=== PATIENT | female | born 1935 | race Caucasian/White ===

== ENCOUNTER 2020-11-11 16:36 | Inpatient (IN) ==
[2020-11-11] MEDS ORDERED: Ondansetron ODT 4 MG TAB.RAPDIS SL PRN (17:45)
[2020-11-12] MEDS: Gabapentin 100 MG CAPSULE PO SCH ×2 (03:59→20:20)
[2020-11-12] MEDS: rOPINIRole 1 MG TABLET PO SCH ×5 (04:00→20:20)
[2020-11-12] MEDS: Famotidine 20 MG TABLET PO SCH ×2 (04:00→20:20)
[2020-11-12 08:10] LABS: Basophils % 0.4 %; Eosinophils # 0.4 K/mcL (0.0-0.6); Eosinophils % 4.7 %; Hemoglobin 10.5 g/dL (11.5-15.4); Immature Granulocytes % 0.6 % (0-4); Lymphocytes # 1.2 K/mcL (0.6-4.6); Lymphocytes % 12.7 %; Mean Corpuscular HGB Conc 32.8 g/dL (31.6-35.5); Mean Corpuscular Hemoglobin 27.4 pg (28.0-33.3); Mean Corpuscular Volume 83.6 fL (83.0-100.0); Mean Platelet Volume 9.9 fL (9.4-12.4); Monocytes # 0.6 K/mcL (0.0-1.3); Monocytes % 6.4 %; Neutrophils # 7.1 K/mcL (1.6-8.9); Platelet Count 355 K/mcL (140-400); Red Blood Count 3.83 M/mcL (3.82-4.97); Red Cell Distribution Width 13.8 % (11.5-14.5); Segmented Neutrophils % 75.2 %; White Blood Count 9.5 K/mcL (4.3-11.1)
[2020-11-12 08:37] LABS: BUN/Creatinine Ratio 14 (6-26); Blood Urea Nitrogen 15 mg/dL (8-23); Calcium 9.2 mg/dL (8.6-10.3); Carbon Dioxide 25 mEq/L (23-29); Chloride 107 mEq/L (98-107); Glucose 105 mg/dL (70-105); Osmolality,Calculated 291 (280-300); Potassium 3.7 mEq/L (3.5-5.1); Sodium 140 mEq/L (136-145); eGFR For African Americans > 60 (> 60); eGFR For Non-African Americans 50 (> 60)
[2020-11-12] MEDS: Cholecalciferol (D-3) 1,000 UNIT (25MCG) TABLET PO SCH (09:22)
[2020-11-12] MEDS: amLODIPine 5 MG TABLET PO SCH (09:22)
[2020-11-12] MEDS: Multivit/Ca/Min/Fe/FA 1 TAB TABLET PO SCH (09:23)
[2020-11-12] MEDS: Acetaminophen 325 MG TABLET PO PRN ×2 (09:23→20:20)
[2020-11-12] MEDS: Furosemide 20 MG TABLET PO SCH (09:23)
[2020-11-12] MEDS: DAPTOmycin 350 MG in 0.9 % Sodium Chloride 100 ML IVPB SCH (16:50)
[2020-11-12] MEDS: tiZANidine 4 MG TABLET PO SCH (20:20)
[2020-11-13] MEDS: rOPINIRole 1 MG TABLET PO SCH ×4 (09:27→21:46)
[2020-11-13] MEDS: Acetaminophen 325 MG TABLET PO PRN ×2 (09:27→17:31)
[2020-11-13] MEDS: Cholecalciferol (D-3) 1,000 UNIT (25MCG) TABLET PO SCH (09:27)
[2020-11-13] MEDS: Multivit/Ca/Min/Fe/FA 1 TAB TABLET PO SCH (09:27)
[2020-11-13] MEDS: Furosemide 20 MG TABLET PO SCH (09:28)
[2020-11-13] MEDS: amLODIPine 5 MG TABLET PO SCH (09:28)
[2020-11-13] MEDS: DAPTOmycin 350 MG in 0.9 % Sodium Chloride 100 ML IVPB SCH ×2 (17:30→17:31)
[2020-11-13] MEDS: tiZANidine 4 MG TABLET PO SCH (21:45)
[2020-11-13] MEDS: Famotidine 20 MG TABLET PO SCH (21:46)
[2020-11-13] MEDS: Gabapentin 100 MG CAPSULE PO SCH (21:46)
[2020-11-14] MEDS: Acetaminophen 325 MG TABLET PO PRN ×2 (07:50→16:40)
[2020-11-14] MEDS: amLODIPine 5 MG TABLET PO SCH (07:50)
[2020-11-14] MEDS: Cholecalciferol (D-3) 1,000 UNIT (25MCG) TABLET PO SCH (07:50)
[2020-11-14] MEDS: rOPINIRole 1 MG TABLET PO SCH ×4 (07:50→20:46)
[2020-11-14] MEDS: Multivit/Ca/Min/Fe/FA 1 TAB TABLET PO SCH (07:50)
[2020-11-14] MEDS: Furosemide 20 MG TABLET PO SCH (07:50)
[2020-11-14] MEDS: DAPTOmycin 350 MG in 0.9 % Sodium Chloride 100 ML IVPB SCH (16:41)
[2020-11-14] MEDS: Gabapentin 100 MG CAPSULE PO SCH (20:45)
[2020-11-14] MEDS: Famotidine 20 MG TABLET PO SCH (20:46)
[2020-11-14] MEDS: tiZANidine 4 MG TABLET PO SCH (20:48)
[2020-11-15] MEDS: Acetaminophen 325 MG TABLET PO PRN ×3 (04:29→21:53)
[2020-11-15] MEDS ORDERED: *HR* HYDROcodone/Acet 5/325 mg TABLET PO ONE (05:31)
[2020-11-15] MEDS: Furosemide 20 MG TABLET PO SCH (07:33)
[2020-11-15] MEDS: rOPINIRole 1 MG TABLET PO SCH ×4 (07:33→21:55)
[2020-11-15] MEDS: Cholecalciferol (D-3) 1,000 UNIT (25MCG) TABLET PO SCH (07:33)
[2020-11-15] MEDS: amLODIPine 5 MG TABLET PO SCH (07:33)
[2020-11-15] MEDS: Multivit/Ca/Min/Fe/FA 1 TAB TABLET PO SCH (07:33)
[2020-11-15] MEDS: DAPTOmycin 350 MG in 0.9 % Sodium Chloride 100 ML IVPB SCH (15:36)
[2020-11-15] MEDS: Famotidine 20 MG TABLET PO SCH (21:52)
[2020-11-15] MEDS: tiZANidine 4 MG TABLET PO SCH (21:56)
[2020-11-15] MEDS: Gabapentin 100 MG CAPSULE PO SCH (21:56)
[2020-11-16] MEDS: rOPINIRole 1 MG TABLET PO SCH ×4 (10:43→21:06)
[2020-11-16] MEDS: Cholecalciferol (D-3) 1,000 UNIT (25MCG) TABLET PO SCH (10:44)
[2020-11-16] MEDS: Furosemide 20 MG TABLET PO SCH (10:45)
[2020-11-16] MEDS: Multivit/Ca/Min/Fe/FA 1 TAB TABLET PO SCH (10:45)
[2020-11-16] MEDS: amLODIPine 5 MG TABLET PO SCH (10:45)
[2020-11-16] MEDS: DAPTOmycin 350 MG in 0.9 % Sodium Chloride 100 ML IVPB SCH (17:06)
[2020-11-16] MEDS: Gabapentin 100 MG CAPSULE PO SCH (21:06)
[2020-11-16] MEDS: Famotidine 20 MG TABLET PO SCH (21:06)
[2020-11-16] MEDS: tiZANidine 4 MG TABLET PO SCH (21:07)
[2020-11-17] MEDS: Furosemide 20 MG TABLET PO SCH (08:33)
[2020-11-17] MEDS: rOPINIRole 1 MG TABLET PO SCH ×4 (08:33→20:49)
[2020-11-17] MEDS: Acetaminophen 325 MG TABLET PO PRN (08:33)
[2020-11-17] MEDS: amLODIPine 5 MG TABLET PO SCH (08:33)
[2020-11-17] MEDS: Multivit/Ca/Min/Fe/FA 1 TAB TABLET PO SCH (08:33)
[2020-11-17] MEDS: Cholecalciferol (D-3) 1,000 UNIT (25MCG) TABLET PO SCH (08:34)
[2020-11-17] MEDS: DAPTOmycin 350 MG in 0.9 % Sodium Chloride 100 ML IVPB SCH (16:04)
[2020-11-17] MEDS: Famotidine 20 MG TABLET PO SCH (20:46)
[2020-11-17] MEDS: Gabapentin 100 MG CAPSULE PO SCH (20:47)
[2020-11-17] MEDS: tiZANidine 4 MG TABLET PO SCH (20:48)
[2020-11-18 08:00] LABS: Basophils # 0.1 K/mcL (0.0-0.2); Basophils % 1.1 %; Eosinophils # 0.6 K/mcL (0.0-0.6); Eosinophils % 6.8 %; Hematocrit 35.6 % (35.3-44.9); Hemoglobin 11.3 g/dL (11.5-15.4); Immature Granulocytes % 0.2 % (0-4); Lymphocytes # 1.8 K/mcL (0.6-4.6); Lymphocytes % 22.3 %; Mean Corpuscular HGB Conc 31.7 g/dL (31.6-35.5); Mean Corpuscular Hemoglobin 27.4 pg (28.0-33.3); Mean Corpuscular Volume 86.4 fL (83.0-100.0); Mean Platelet Volume 9.9 fL (9.4-12.4); Monocytes # 0.8 K/mcL (0.0-1.3); Monocytes % 9.7 %; Neutrophils # 4.8 K/mcL (1.6-8.9); Platelet Count 465 K/mcL (140-400); Red Blood Count 4.12 M/mcL (3.82-4.97); Red Cell Distribution Width 13.7 % (11.5-14.5); Segmented Neutrophils % 59.9 %; White Blood Count 8.1 K/mcL (4.3-11.1)
[2020-11-18 08:30] LABS: Calcium 9.6 mg/dL (8.6-10.3); Potassium 3.7 mEq/L (3.5-5.1)
[2020-11-18] MEDS: Furosemide 20 MG TABLET PO SCH (09:44)
[2020-11-18] MEDS: amLODIPine 5 MG TABLET PO SCH (09:44)
[2020-11-18] MEDS: Cholecalciferol (D-3) 1,000 UNIT (25MCG) TABLET PO SCH (09:44)
[2020-11-18] MEDS: rOPINIRole 1 MG TABLET PO SCH ×4 (09:44→19:44)
[2020-11-18] MEDS: Multivit/Ca/Min/Fe/FA 1 TAB TABLET PO SCH (09:45)
[2020-11-18] MEDS: DAPTOmycin 350 MG in 0.9 % Sodium Chloride 100 ML IVPB SCH (15:35)
[2020-11-18] MEDS: tiZANidine 4 MG TABLET PO SCH (19:44)
[2020-11-18] MEDS: Gabapentin 100 MG CAPSULE PO SCH (19:44)
[2020-11-19] MEDS: Cholecalciferol (D-3) 1,000 UNIT (25MCG) TABLET PO SCH (09:51)
[2020-11-19] MEDS: Multivit/Ca/Min/Fe/FA 1 TAB TABLET PO SCH (09:51)
[2020-11-19] MEDS: rOPINIRole 1 MG TABLET PO SCH ×4 (09:51→20:18)
[2020-11-19] MEDS: Furosemide 20 MG TABLET PO SCH (09:51)
[2020-11-19] MEDS: amLODIPine 5 MG TABLET PO SCH (09:51)
[2020-11-19] MEDS: 0.9 % Sodium Chloride 1,000 ML IVC SCH (18:05)
[2020-11-19] MEDS: Gabapentin 100 MG CAPSULE PO SCH (20:18)
[2020-11-19] MEDS: tiZANidine 4 MG TABLET PO SCH (20:18)
[2020-11-19] MEDS: Famotidine 20 MG TABLET PO SCH (20:18)
[2020-11-20] MEDS: 0.9 % Sodium Chloride 1,000 ML IVC SCH (06:33)
[2020-11-20 07:35] LABS: Potassium 4.3 mEq/L (3.5-5.1)
[2020-11-20] MEDS: rOPINIRole 1 MG TABLET PO SCH ×4 (08:52→21:52)
[2020-11-20] MEDS: Cholecalciferol (D-3) 1,000 UNIT (25MCG) TABLET PO SCH (08:52)
[2020-11-20] MEDS: Multivit/Ca/Min/Fe/FA 1 TAB TABLET PO SCH (08:52)
[2020-11-20] MEDS: Furosemide 20 MG TABLET PO SCH (10:18)
[2020-11-20] MEDS: tiZANidine 4 MG TABLET PO SCH (21:52)
[2020-11-20] MEDS: Gabapentin 100 MG CAPSULE PO SCH (21:52)
[2020-11-21] MEDS: Cholecalciferol (D-3) 1,000 UNIT (25MCG) TABLET PO SCH (08:09)
[2020-11-21] MEDS: rOPINIRole 1 MG TABLET PO SCH ×3 (08:09→23:30)
[2020-11-21] MEDS: Multivit/Ca/Min/Fe/FA 1 TAB TABLET PO SCH (08:09)
[2020-11-21 09:49] LABS: Calcium 8.8 mg/dL (8.6-10.3); Potassium 4.2 mEq/L (3.5-5.1)
[2020-11-21] MEDS: tiZANidine 4 MG TABLET PO SCH (20:18)
[2020-11-21] MEDS: Gabapentin 100 MG CAPSULE PO SCH (20:19)
[2020-11-21] MEDS: Famotidine 20 MG TABLET PO SCH (20:20)
[2020-11-22] MEDS: rOPINIRole 1 MG TABLET PO SCH ×4 (05:45→23:10)
[2020-11-22] MEDS: Cholecalciferol (D-3) 1,000 UNIT (25MCG) TABLET PO SCH (08:27)
[2020-11-22] MEDS: Multivit/Ca/Min/Fe/FA 1 TAB TABLET PO SCH (08:27)
[2020-11-22] MEDS: Furosemide 20 MG TABLET PO SCH (11:57)
[2020-11-22] MEDS: Gabapentin 100 MG CAPSULE PO SCH (21:24)
[2020-11-22] MEDS: tiZANidine 4 MG TABLET PO SCH (21:24)
[2020-11-23] MEDS: rOPINIRole 1 MG TABLET PO SCH ×5 (03:00→22:27)
[2020-11-23] MEDS: Multivit/Ca/Min/Fe/FA 1 TAB TABLET PO SCH (08:09)
[2020-11-23] MEDS: Cholecalciferol (D-3) 1,000 UNIT (25MCG) TABLET PO SCH (08:10)
[2020-11-23] MEDS: Furosemide 20 MG TABLET PO SCH (08:11)
[2020-11-23] MEDS: Gabapentin 100 MG CAPSULE PO SCH (20:04)
[2020-11-23] MEDS: Famotidine 20 MG TABLET PO SCH (20:05)
[2020-11-23] MEDS: tiZANidine 4 MG TABLET PO SCH (20:05)
[2020-11-24] MEDS: rOPINIRole 1 MG TABLET PO SCH ×4 (04:59→22:49)
[2020-11-24] MEDS: Multivit/Ca/Min/Fe/FA 1 TAB TABLET PO SCH ×2 (09:03→09:04)
[2020-11-24] MEDS: Furosemide 20 MG TABLET PO SCH (09:04)
[2020-11-24] MEDS: Cholecalciferol (D-3) 1,000 UNIT (25MCG) TABLET PO SCH (09:04)
[2020-11-24] MEDS: tiZANidine 4 MG TABLET PO SCH (20:39)
[2020-11-24] MEDS: Gabapentin 100 MG CAPSULE PO SCH (20:40)
[2020-11-25] MEDS: rOPINIRole 1 MG TABLET PO SCH ×4 (04:56→22:24)
[2020-11-25] MEDS: Furosemide 20 MG TABLET PO SCH (08:50)
[2020-11-25] MEDS: Multivit/Ca/Min/Fe/FA 1 TAB TABLET PO SCH (08:50)
[2020-11-25] MEDS: Cholecalciferol (D-3) 1,000 UNIT (25MCG) TABLET PO SCH (08:50)
[2020-11-25] MEDS: Gabapentin 100 MG CAPSULE PO SCH (22:24)
[2020-11-25] MEDS: tiZANidine 4 MG TABLET PO SCH (22:24)
[2020-11-25] MEDS: Famotidine 20 MG TABLET PO SCH (22:24)
[2020-11-26] MEDS: rOPINIRole 1 MG TABLET PO SCH ×4 (06:10→22:07)
[2020-11-26] MEDS: Cholecalciferol (D-3) 1,000 UNIT (25MCG) TABLET PO SCH (11:45)
[2020-11-26] MEDS: Multivit/Ca/Min/Fe/FA 1 TAB TABLET PO SCH (11:46)
[2020-11-26] MEDS: Furosemide 20 MG TABLET PO SCH (11:47)
[2020-11-26] MEDS: Gabapentin 100 MG CAPSULE PO SCH (22:07)
[2020-11-26] MEDS: tiZANidine 4 MG TABLET PO SCH (22:07)
[2020-11-27] MEDS: rOPINIRole 1 MG TABLET PO SCH ×4 (05:41→21:21)
[2020-11-27] MEDS: Furosemide 20 MG TABLET PO SCH (08:31)
[2020-11-27] MEDS: Multivit/Ca/Min/Fe/FA 1 TAB TABLET PO SCH (08:31)
[2020-11-27] MEDS: Cholecalciferol (D-3) 1,000 UNIT (25MCG) TABLET PO SCH (08:31)
[2020-11-27] MEDS: tiZANidine 4 MG TABLET PO SCH (21:18)
[2020-11-27] MEDS: Gabapentin 100 MG CAPSULE PO SCH (21:19)
[2020-11-27] MEDS: Famotidine 20 MG TABLET PO SCH (21:20)
[2020-11-28] MEDS: rOPINIRole 1 MG TABLET PO SCH ×4 (04:13→21:46)
[2020-11-28] MEDS: Cholecalciferol (D-3) 1,000 UNIT (25MCG) TABLET PO SCH (09:05)
[2020-11-28] MEDS: Multivit/Ca/Min/Fe/FA 1 TAB TABLET PO SCH (09:05)
[2020-11-28] MEDS: Furosemide 20 MG TABLET PO SCH (09:05)
[2020-11-28] MEDS: Gabapentin 100 MG CAPSULE PO SCH (21:46)
[2020-11-28] MEDS: tiZANidine 4 MG TABLET PO SCH (21:46)
[2020-11-29] MEDS: rOPINIRole 1 MG TABLET PO SCH ×4 (05:03→21:48)
[2020-11-29] MEDS: Cholecalciferol (D-3) 1,000 UNIT (25MCG) TABLET PO SCH (09:28)
[2020-11-29] MEDS: Multivit/Ca/Min/Fe/FA 1 TAB TABLET PO SCH (09:28)
[2020-11-29] MEDS: Furosemide 20 MG TABLET PO SCH (09:28)
[2020-11-29] MEDS: tiZANidine 4 MG TABLET PO SCH (20:35)
[2020-11-29] MEDS: Famotidine 20 MG TABLET PO SCH (20:35)
[2020-11-29] MEDS: Gabapentin 100 MG CAPSULE PO SCH (20:35)
[2020-11-30] MEDS: rOPINIRole 1 MG TABLET PO SCH ×4 (05:05→21:42)
[2020-11-30] MEDS: Cholecalciferol (D-3) 1,000 UNIT (25MCG) TABLET PO SCH (08:58)
[2020-11-30] MEDS: Multivit/Ca/Min/Fe/FA 1 TAB TABLET PO SCH (08:59)
[2020-11-30] MEDS: Furosemide 20 MG TABLET PO SCH (08:59)
[2020-11-30] MEDS: Gabapentin 100 MG CAPSULE PO SCH (21:41)
[2020-11-30] MEDS: tiZANidine 4 MG TABLET PO SCH (21:42)
[2020-12-01] MEDS: rOPINIRole 1 MG TABLET PO SCH ×4 (04:43→21:36)
[2020-12-01] MEDS: Multivit/Ca/Min/Fe/FA 1 TAB TABLET PO SCH (09:40)
[2020-12-01] MEDS: Cholecalciferol (D-3) 1,000 UNIT (25MCG) TABLET PO SCH (09:40)
[2020-12-01] MEDS: Furosemide 20 MG TABLET PO SCH (09:40)
[2020-12-01] MEDS: Gabapentin 100 MG CAPSULE PO SCH (21:35)
[2020-12-01] MEDS: Famotidine 20 MG TABLET PO SCH (21:36)
[2020-12-01] MEDS: tiZANidine 4 MG TABLET PO SCH (21:36)
[2020-12-02] MEDS: rOPINIRole 1 MG TABLET PO SCH ×4 (04:57→21:39)
[2020-12-02] MEDS: Multivit/Ca/Min/Fe/FA 1 TAB TABLET PO SCH (08:57)
[2020-12-02] MEDS: Cholecalciferol (D-3) 1,000 UNIT (25MCG) TABLET PO SCH (08:57)
[2020-12-02 09:10] LABS: Basophils % 0.5 %; Eosinophils # 0.4 K/mcL (0.0-0.6); Hematocrit 34.3 % (35.3-44.9); Hemoglobin 10.9 g/dL (11.5-15.4); Immature Granulocytes % 0.1 % (0-4); Lymphocytes # 1.2 K/mcL (0.6-4.6); Mean Corpuscular HGB Conc 31.8 g/dL (31.6-35.5); Mean Corpuscular Hemoglobin 27.5 pg (28.0-33.3); Mean Corpuscular Volume 86.4 fL (83.0-100.0); Mean Platelet Volume 9.3 fL (9.4-12.4); Monocytes # 0.5 K/mcL (0.0-1.3); Monocytes % 6.5 %; Neutrophils # 5.2 K/mcL (1.6-8.9); Platelet Count 357 K/mcL (140-400); Red Blood Count 3.97 M/mcL (3.82-4.97); Red Cell Distribution Width 14.2 % (11.5-14.5); Segmented Neutrophils % 70.9 %; White Blood Count 7.4 K/mcL (4.3-11.1)
[2020-12-02 09:21] LABS: Calcium 9.2 mg/dL (8.6-10.3); Potassium 3.7 mEq/L (3.5-5.1)
[2020-12-02] MEDS: 0.9 % Sodium Chloride 1,000 ML IVC SCH (16:52)
[2020-12-02] MEDS: Gabapentin 100 MG CAPSULE PO SCH (21:39)
[2020-12-02] MEDS: tiZANidine 4 MG TABLET PO SCH (21:39)
[2020-12-03] MEDS: rOPINIRole 1 MG TABLET PO SCH ×4 (04:44→21:21)
[2020-12-03] MEDS: 0.9 % Sodium Chloride 1,000 ML IVC SCH ×2 (04:45→19:38)
[2020-12-03 07:32] LABS: Calcium 8.3 mg/dL (8.6-10.3); Potassium 3.7 mEq/L (3.5-5.1)
[2020-12-03] MEDS: Cholecalciferol (D-3) 1,000 UNIT (25MCG) TABLET PO SCH (09:31)
[2020-12-03] MEDS: Multivit/Ca/Min/Fe/FA 1 TAB TABLET PO SCH (09:31)
[2020-12-03] MEDS ORDERED: Perflutren Lipid Microsphere 1.3 ML in 0.9 % Sodium Chloride 8.7 ML IVP PRN (09:43)
[2020-12-03] MEDS: tiZANidine 4 MG TABLET PO SCH (21:12)
[2020-12-03] MEDS: Gabapentin 100 MG CAPSULE PO SCH (21:12)
[2020-12-03] MEDS: Famotidine 20 MG TABLET PO SCH (21:13)
[2020-12-04] MEDS: rOPINIRole 1 MG TABLET PO SCH ×4 (04:10→23:18)
[2020-12-04] MEDS: Cholecalciferol (D-3) 1,000 UNIT (25MCG) TABLET PO SCH (07:39)
[2020-12-04] MEDS: Multivit/Ca/Min/Fe/FA 1 TAB TABLET PO SCH (07:39)
[2020-12-04 08:48] LABS: Basophils # 0.1 K/mcL (0.0-0.2); Basophils % 0.7 %; Eosinophils # 0.6 K/mcL (0.0-0.6); Eosinophils % 9.5 %; Hematocrit 34.7 % (35.3-44.9); Hemoglobin 10.7 g/dL (11.5-15.4); Immature Granulocytes % 0.3 % (0-4); Lymphocytes # 1.5 K/mcL (0.6-4.6); Lymphocytes % 22.6 %; Mean Corpuscular HGB Conc 30.8 g/dL (31.6-35.5); Mean Corpuscular Volume 87.4 fL (83.0-100.0); Mean Platelet Volume 9.7 fL (9.4-12.4); Monocytes # 0.6 K/mcL (0.0-1.3); Monocytes % 8.2 %; Platelet Count 304 K/mcL (140-400); Red Blood Count 3.97 M/mcL (3.82-4.97); Red Cell Distribution Width 14.2 % (11.5-14.5); Segmented Neutrophils % 58.7 %; White Blood Count 6.7 K/mcL (4.3-11.1)
[2020-12-04 09:12] LABS: BUN/Creatinine Ratio 16 (6-26); Blood Urea Nitrogen 16 mg/dL (8-23); Calcium 8.6 mg/dL (8.6-10.3); Carbon Dioxide 23 mEq/L (23-29); Chloride 109 mEq/L (98-107); Glucose 129 mg/dL (70-105); Osmolality,Calculated 293 (280-300); Potassium 3.9 mEq/L (3.5-5.1); Sodium 140 mEq/L (136-145); eGFR For African Americans > 60 (> 60); eGFR For Non-African Americans 52 (> 60)
[2020-12-04] MEDS: 0.9 % Sodium Chloride 1,000 ML IVC SCH (10:23)
[2020-12-04] MEDS: Gabapentin 100 MG CAPSULE PO SCH (20:59)
[2020-12-04] MEDS: tiZANidine 4 MG TABLET PO SCH (20:59)
[2020-12-05] MEDS: rOPINIRole 1 MG TABLET PO SCH ×4 (05:20→21:10)
[2020-12-05] MEDS: Multivit/Ca/Min/Fe/FA 1 TAB TABLET PO SCH (08:12)
[2020-12-05] MEDS: Cholecalciferol (D-3) 1,000 UNIT (25MCG) TABLET PO SCH (08:13)
[2020-12-05] MEDS: Furosemide 20 MG TABLET PO SCH (08:13)
[2020-12-05] MEDS: Famotidine 20 MG TABLET PO SCH (08:14)
[2020-12-05] MEDS: tiZANidine 4 MG TABLET PO SCH (21:10)
[2020-12-05] MEDS: Gabapentin 100 MG CAPSULE PO SCH (21:10)
[2020-12-06] MEDS: rOPINIRole 1 MG TABLET PO SCH ×4 (05:29→22:49)
[2020-12-06] MEDS: Cholecalciferol (D-3) 1,000 UNIT (25MCG) TABLET PO SCH (08:55)
[2020-12-06] MEDS: Multivit/Ca/Min/Fe/FA 1 TAB TABLET PO SCH (08:55)
[2020-12-06] MEDS: Furosemide 20 MG TABLET PO SCH (08:56)
[2020-12-06] MEDS: Famotidine 20 MG TABLET PO SCH (08:56)
[2020-12-06] MEDS: Gabapentin 100 MG CAPSULE PO SCH (20:44)
[2020-12-06] MEDS: tiZANidine 4 MG TABLET PO SCH (20:44)
[2020-12-07] MEDS: rOPINIRole 1 MG TABLET PO SCH ×4 (05:36→23:10)
[2020-12-07] MEDS ORDERED: *HR* Propofol 200 MG/20 ML VIAL IVP ONE (07:06)
[2020-12-07] MEDS ORDERED: Lidocaine -MPF 2% 5 ML VIAL ONE (07:07)
[2020-12-07] MEDS ORDERED: Famotidine 20 MG/2 ML VIAL IVP ONE (07:37)
[2020-12-07] MEDS ORDERED: Acetaminophen IV 1,000 MG/100 ML BAG IVPB ONE (07:38)
[2020-12-07] MEDS: Multivit/Ca/Min/Fe/FA 1 TAB TABLET PO SCH (12:59)
[2020-12-07] MEDS: Famotidine 20 MG TABLET PO SCH (12:59)
[2020-12-07] MEDS: Cholecalciferol (D-3) 1,000 UNIT (25MCG) TABLET PO SCH (13:00)
[2020-12-07] MEDS: Furosemide 20 MG TABLET PO SCH (13:00)
[2020-12-07] MEDS ORDERED: *HR* HYDROcodone/Acet 5/325 mg TABLET PO PRN (15:38)
[2020-12-07] MEDS: Gabapentin 100 MG CAPSULE PO SCH (20:01)
[2020-12-07] MEDS: tiZANidine 4 MG TABLET PO SCH (20:01)
[2020-12-08] MEDS: rOPINIRole 1 MG TABLET PO SCH ×3 (05:08→18:30)
[2020-12-08] MEDS: Multivit/Ca/Min/Fe/FA 1 TAB TABLET PO SCH (08:29)
[2020-12-08] MEDS: Cholecalciferol (D-3) 1,000 UNIT (25MCG) TABLET PO SCH (08:29)
[2020-12-08] MEDS: Furosemide 20 MG TABLET PO SCH (08:29)
[2020-12-08] MEDS: Famotidine 20 MG TABLET PO SCH (08:29)
[2020-12-08] MEDS: tiZANidine 4 MG TABLET PO SCH (22:40)
[2020-12-08] MEDS: Gabapentin 100 MG CAPSULE PO SCH (22:40)
[2020-12-09] MEDS: rOPINIRole 1 MG TABLET PO SCH ×5 (00:45→23:35)
[2020-12-09] MEDS: Famotidine 20 MG TABLET PO SCH (08:36)
[2020-12-09] MEDS: Furosemide 20 MG TABLET PO SCH (08:36)
[2020-12-09] MEDS: Cholecalciferol (D-3) 1,000 UNIT (25MCG) TABLET PO SCH (08:36)
[2020-12-09] MEDS: Multivit/Ca/Min/Fe/FA 1 TAB TABLET PO SCH (08:37)
[2020-12-09 09:37] LABS: Basophils # 0.1 K/mcL (0.0-0.2); Basophils % 0.8 %; Eosinophils # 0.3 K/mcL (0.0-0.6); Eosinophils % 4.2 %; Hematocrit 38.3 % (35.3-44.9); Hemoglobin 12.1 g/dL (11.5-15.4); Immature Granulocytes % 0.4 % (0-4); Lymphocytes % 27.1 %; Mean Corpuscular HGB Conc 31.6 g/dL (31.6-35.5); Mean Corpuscular Hemoglobin 27.5 pg (28.0-33.3); Mean Platelet Volume 9.9 fL (9.4-12.4); Monocytes # 0.6 K/mcL (0.0-1.3); Monocytes % 8.2 %; Neutrophils # 4.3 K/mcL (1.6-8.9); Platelet Count 341 K/mcL (140-400); Red Cell Distribution Width 14.6 % (11.5-14.5); Segmented Neutrophils % 59.3 %; White Blood Count 7.3 K/mcL (4.3-11.1)
[2020-12-09 10:07] LABS: Calcium 9.1 mg/dL (8.6-10.3); Potassium 3.5 mEq/L (3.5-5.1)
[2020-12-09] MEDS: Gabapentin 100 MG CAPSULE PO SCH (21:49)
[2020-12-09] MEDS: tiZANidine 4 MG TABLET PO SCH (21:50)
[2020-12-10] MEDS: rOPINIRole 1 MG TABLET PO SCH ×4 (05:39→23:20)
[2020-12-10] MEDS: Famotidine 20 MG TABLET PO SCH ×2 (08:36→16:16)
[2020-12-10] MEDS: Furosemide 20 MG TABLET PO SCH (08:36)
[2020-12-10] MEDS: Multivit/Ca/Min/Fe/FA 1 TAB TABLET PO SCH (08:36)
[2020-12-10] MEDS: Cholecalciferol (D-3) 1,000 UNIT (25MCG) TABLET PO SCH (08:36)
[2020-12-10] MEDS: Gabapentin 100 MG CAPSULE PO SCH (21:22)
[2020-12-10] MEDS: tiZANidine 4 MG TABLET PO SCH (21:22)
[2020-12-11] MEDS: rOPINIRole 1 MG TABLET PO SCH ×4 (05:22→22:36)
[2020-12-11] MEDS: Multivit/Ca/Min/Fe/FA 1 TAB TABLET PO SCH (09:05)
[2020-12-11] MEDS: Furosemide 20 MG TABLET PO SCH (09:05)
[2020-12-11] MEDS: Cholecalciferol (D-3) 1,000 UNIT (25MCG) TABLET PO SCH (09:05)
[2020-12-11] MEDS: tiZANidine 4 MG TABLET PO SCH (22:36)
[2020-12-11] MEDS: Gabapentin 100 MG CAPSULE PO SCH (22:36)
[2020-12-12] MEDS: rOPINIRole 1 MG TABLET PO SCH ×2 (04:49→09:59)
[2020-12-12 08:08] VITALS: BP 127/74; PULSE 81; RESP 18; TEMP 98.3; O2SAT 94
[2020-12-12] MEDS: Famotidine 20 MG TABLET PO SCH (09:58)
[2020-12-12] MEDS: Multivit/Ca/Min/Fe/FA 1 TAB TABLET PO SCH (09:58)
[2020-12-12] MEDS: Cholecalciferol (D-3) 1,000 UNIT (25MCG) TABLET PO SCH (09:59)
[2020-12-12] MEDS: Furosemide 20 MG TABLET PO SCH (09:59)
== END 2020-12-12 15:58 | disposition home health service (06) | DRG 884 ==
LOC: INPPIK 23:50
PROVIDERS: ADMIT Family Medicine; ATTEND Family Medicine

== ENCOUNTER 2021-09-23 18:43 | Inpatient (IN) ==
[2021-09-23] MEDS ORDERED: Famotidine 20 MG TABLET PO SCH (21:00)
[2021-09-23] MEDS ORDERED: Gabapentin 100 MG CAPSULE PO SCH (21:00)
[2021-09-23] MEDS ORDERED: amLODIPine 5 MG TABLET PO SCH (21:00)
[2021-09-24] MEDS ORDERED: Torsemide 20 MG TABLET PO SCH (09:00)
[2021-09-24] MEDS ORDERED: Famotidine 20 MG TABLET PO SCH (09:00)
[2021-09-24 09:13] LABS: Basophils % 0.2 %; Hematocrit 35.7 % (35.3-44.9); Hemoglobin 11.4 g/dL (11.5-15.4); Immature Granulocytes % 0.6 % (0-4); Lymphocytes # 0.8 K/mcL (0.6-4.6); Lymphocytes % 12.6 %; Mean Corpuscular HGB Conc 31.9 g/dL (31.6-35.5); Mean Corpuscular Hemoglobin 26.9 pg (28.0-33.3); Mean Corpuscular Volume 84.2 fL (83.0-100.0); Mean Platelet Volume 9.8 fL (9.4-12.4); Monocytes # 0.3 K/mcL (0.0-1.3); Monocytes % 4.5 %; Neutrophils # 5.1 K/mcL (1.6-8.9); Platelet Count 413 K/mcL (140-400); Red Blood Count 4.24 M/mcL (3.82-4.97); Red Cell Distribution Width 14.4 % (11.5-14.5); Segmented Neutrophils % 82.1 %; White Blood Count 6.3 K/mcL (4.3-11.1)
[2021-09-24] MEDS: rOPINIRole 1 MG TABLET PO SCH ×4 (09:27→20:37)
[2021-09-24] MEDS: Aspirin Enteric Coated 81 MG Tablet PO SCH (09:27)
[2021-09-24] MEDS: Apixaban 5 MG TABLET PO SCH ×2 (09:27→20:37)
[2021-09-24] MEDS: Gabapentin 100 MG CAPSULE PO SCH ×3 (09:27→20:37)
[2021-09-24] MEDS: Cholecalciferol (D-3) 1,000 UNIT (25MCG) TABLET PO SCH (09:27)
[2021-09-24] MEDS: allopurinoL 100 MG TABLET PO SCH (09:27)
[2021-09-24] MEDS: Multivit/Ca/Min/Fe/FA 1 TAB TABLET PO SCH (09:27)
[2021-09-24 09:28] LABS: Calcium 8.9 mg/dL (8.6-10.3); Potassium 4.1 mEq/L (3.5-5.1)
[2021-09-24] MEDS: amLODIPine 5 MG TABLET PO SCH ×2 (09:28→20:36)
[2021-09-24] MEDS: tiZANidine 4 MG TABLET PO PRN (20:36)
[2021-09-25] MEDS ORDERED: Famotidine 20 MG TABLET PO SCH (09:00)
[2021-09-25] MEDS: Cholecalciferol (D-3) 1,000 UNIT (25MCG) TABLET PO SCH (10:19)
[2021-09-25] MEDS: Aspirin Enteric Coated 81 MG Tablet PO SCH (10:19)
[2021-09-25] MEDS: Multivit/Ca/Min/Fe/FA 1 TAB TABLET PO SCH (10:20)
[2021-09-25] MEDS: rOPINIRole 1 MG TABLET PO SCH ×4 (10:20→21:45)
[2021-09-25] MEDS: allopurinoL 100 MG TABLET PO SCH (10:20)
[2021-09-25] MEDS: Apixaban 5 MG TABLET PO SCH ×2 (10:21→21:45)
[2021-09-25] MEDS: Gabapentin 100 MG CAPSULE PO SCH ×3 (10:22→21:45)
[2021-09-25] MEDS: tiZANidine 4 MG TABLET PO PRN (21:46)
[2021-09-26] MEDS: Cholecalciferol (D-3) 1,000 UNIT (25MCG) TABLET PO SCH (10:24)
[2021-09-26] MEDS: Multivit/Ca/Min/Fe/FA 1 TAB TABLET PO SCH (10:24)
[2021-09-26] MEDS: Gabapentin 100 MG CAPSULE PO SCH ×3 (10:24→20:13)
[2021-09-26] MEDS: allopurinoL 100 MG TABLET PO SCH (10:24)
[2021-09-26] MEDS: rOPINIRole 1 MG TABLET PO SCH ×4 (10:25→20:13)
[2021-09-26] MEDS: Aspirin Enteric Coated 81 MG Tablet PO SCH (10:25)
[2021-09-26] MEDS: Famotidine 20 MG TABLET PO SCH (10:25)
[2021-09-26] MEDS: Apixaban 5 MG TABLET PO SCH ×2 (10:25→20:13)
[2021-09-26] MEDS ORDERED: Benzonatate 100 MG CAPSULE PO PRN (13:12)
[2021-09-26] MEDS: tiZANidine 4 MG TABLET PO PRN (20:12)
[2021-09-27] MEDS: Gabapentin 100 MG CAPSULE PO SCH ×3 (10:55→20:49)
[2021-09-27] MEDS: rOPINIRole 1 MG TABLET PO SCH ×4 (10:55→20:49)
[2021-09-27] MEDS: Apixaban 5 MG TABLET PO SCH ×2 (10:55→20:49)
[2021-09-27] MEDS: Multivit/Ca/Min/Fe/FA 1 TAB TABLET PO SCH (10:55)
[2021-09-27] MEDS: Cholecalciferol (D-3) 1,000 UNIT (25MCG) TABLET PO SCH (10:56)
[2021-09-27] MEDS: Aspirin Enteric Coated 81 MG Tablet PO SCH (10:56)
[2021-09-27] MEDS: Famotidine 20 MG TABLET PO SCH (10:56)
[2021-09-27] MEDS: allopurinoL 100 MG TABLET PO SCH (10:56)
[2021-09-27] MEDS: tiZANidine 4 MG TABLET PO PRN (20:49)
[2021-09-28] MEDS: Multivit/Ca/Min/Fe/FA 1 TAB TABLET PO SCH (07:49)
[2021-09-28] MEDS: Aspirin Enteric Coated 81 MG Tablet PO SCH (07:49)
[2021-09-28] MEDS: Gabapentin 100 MG CAPSULE PO SCH ×4 (07:49→23:25)
[2021-09-28] MEDS: allopurinoL 100 MG TABLET PO SCH (07:49)
[2021-09-28] MEDS: Apixaban 5 MG TABLET PO SCH ×3 (07:50→23:25)
[2021-09-28] MEDS: Famotidine 20 MG TABLET PO SCH (07:50)
[2021-09-28] MEDS: Cholecalciferol (D-3) 1,000 UNIT (25MCG) TABLET PO SCH (07:50)
[2021-09-28] MEDS: rOPINIRole 1 MG TABLET PO SCH ×5 (07:50→23:25)
[2021-09-28 08:38] LABS: Basophils % 0.2 %; Eosinophils # 0.2 K/mcL (0.0-0.6); Eosinophils % 1.8 %; Hematocrit 38.6 % (35.3-44.9); Hemoglobin 11.8 g/dL (11.5-15.4); Immature Granulocytes % 0.3 % (0-4); Lymphocytes # 2.4 K/mcL (0.6-4.6); Lymphocytes % 20.7 %; Mean Corpuscular HGB Conc 30.6 g/dL (31.6-35.5); Mean Corpuscular Hemoglobin 26.9 pg (28.0-33.3); Mean Corpuscular Volume 88.1 fL (83.0-100.0); Mean Platelet Volume 9.8 fL (9.4-12.4); Monocytes # 0.7 K/mcL (0.0-1.3); Monocytes % 6.3 %; Neutrophils # 8.2 K/mcL (1.6-8.9); Platelet Count 331 K/mcL (140-400); Red Blood Count 4.38 M/mcL (3.82-4.97); Red Cell Distribution Width 15.1 % (11.5-14.5); Segmented Neutrophils % 70.7 %; White Blood Count 11.6 K/mcL (4.3-11.1)
[2021-09-28 09:02] LABS: Calcium 8.4 mg/dL (8.6-10.3); Potassium 4.1 mEq/L (3.5-5.1)
[2021-09-29] MEDS: Multivit/Ca/Min/Fe/FA 1 TAB TABLET PO SCH (10:10)
[2021-09-29] MEDS: Cholecalciferol (D-3) 1,000 UNIT (25MCG) TABLET PO SCH (10:10)
[2021-09-29] MEDS: allopurinoL 100 MG TABLET PO SCH (10:11)
[2021-09-29] MEDS: Gabapentin 100 MG CAPSULE PO SCH ×3 (10:11→20:16)
[2021-09-29] MEDS: Famotidine 20 MG TABLET PO SCH (10:11)
[2021-09-29] MEDS: rOPINIRole 1 MG TABLET PO SCH ×4 (10:11→20:16)
[2021-09-29] MEDS: Apixaban 5 MG TABLET PO SCH ×3 (10:11→20:16)
[2021-09-29] MEDS: Aspirin Enteric Coated 81 MG Tablet PO SCH (10:11)
[2021-09-30] MEDS: Multivit/Ca/Min/Fe/FA 1 TAB TABLET PO SCH (10:52)
[2021-09-30] MEDS: Famotidine 20 MG TABLET PO SCH (10:53)
[2021-09-30] MEDS: Aspirin Enteric Coated 81 MG Tablet PO SCH (10:53)
[2021-09-30] MEDS: Gabapentin 100 MG CAPSULE PO SCH ×3 (10:53→20:41)
[2021-09-30] MEDS: allopurinoL 100 MG TABLET PO SCH (10:53)
[2021-09-30] MEDS: Cholecalciferol (D-3) 1,000 UNIT (25MCG) TABLET PO SCH (10:54)
[2021-09-30] MEDS: Apixaban 5 MG TABLET PO SCH ×2 (10:54→20:40)
[2021-09-30] MEDS: rOPINIRole 1 MG TABLET PO SCH ×4 (10:54→20:41)
[2021-10-01] MEDS: Aspirin Enteric Coated 81 MG Tablet PO SCH (10:44)
[2021-10-01] MEDS: rOPINIRole 1 MG TABLET PO SCH ×4 (10:44→21:36)
[2021-10-01] MEDS: Cholecalciferol (D-3) 1,000 UNIT (25MCG) TABLET PO SCH (10:44)
[2021-10-01] MEDS: Apixaban 5 MG TABLET PO SCH ×2 (10:44→21:36)
[2021-10-01] MEDS: Multivit/Ca/Min/Fe/FA 1 TAB TABLET PO SCH (10:44)
[2021-10-01] MEDS: Gabapentin 100 MG CAPSULE PO SCH ×3 (10:44→21:35)
[2021-10-01] MEDS: Famotidine 20 MG TABLET PO SCH (10:44)
[2021-10-01] MEDS: allopurinoL 100 MG TABLET PO SCH (10:44)
[2021-10-02] MEDS: Famotidine 20 MG TABLET PO SCH (10:11)
[2021-10-02] MEDS: Aspirin Enteric Coated 81 MG Tablet PO SCH (10:12)
[2021-10-02] MEDS: Multivit/Ca/Min/Fe/FA 1 TAB TABLET PO SCH (10:12)
[2021-10-02] MEDS: rOPINIRole 1 MG TABLET PO SCH ×4 (10:12→22:40)
[2021-10-02] MEDS: allopurinoL 100 MG TABLET PO SCH (10:12)
[2021-10-02] MEDS: Gabapentin 100 MG CAPSULE PO SCH ×3 (10:12→22:40)
[2021-10-02] MEDS: Apixaban 5 MG TABLET PO SCH ×2 (10:13→22:40)
[2021-10-02] MEDS: Cholecalciferol (D-3) 1,000 UNIT (25MCG) TABLET PO SCH (10:13)
[2021-10-03] MEDS: allopurinoL 100 MG TABLET PO SCH (08:33)
[2021-10-03] MEDS: Multivit/Ca/Min/Fe/FA 1 TAB TABLET PO SCH (08:34)
[2021-10-03] MEDS: rOPINIRole 1 MG TABLET PO SCH ×4 (08:34→22:02)
[2021-10-03] MEDS: Gabapentin 100 MG CAPSULE PO SCH ×3 (08:34→22:02)
[2021-10-03] MEDS: Aspirin Enteric Coated 81 MG Tablet PO SCH (08:34)
[2021-10-03] MEDS: Cholecalciferol (D-3) 1,000 UNIT (25MCG) TABLET PO SCH (08:34)
[2021-10-03] MEDS: Apixaban 5 MG TABLET PO SCH ×2 (08:34→22:02)
[2021-10-03] MEDS: Famotidine 20 MG TABLET PO SCH (08:34)
[2021-10-03 08:41] LABS: Basophils % 0.3 %; Eosinophils # 0.4 K/mcL (0.0-0.6); Hematocrit 33.9 % (35.3-44.9); Hemoglobin 10.5 g/dL (11.5-15.4); Immature Granulocytes % 0.3 % (0-4); Lymphocytes # 1.7 K/mcL (0.6-4.6); Lymphocytes % 19.1 %; Mean Corpuscular Hemoglobin 27.3 pg (28.0-33.3); Mean Corpuscular Volume 88.3 fL (83.0-100.0); Monocytes # 0.4 K/mcL (0.0-1.3); Monocytes % 5.1 %; Neutrophils # 6.1 K/mcL (1.6-8.9); Platelet Count 304 K/mcL (140-400); Red Blood Count 3.84 M/mcL (3.82-4.97); Red Cell Distribution Width 15.7 % (11.5-14.5); Segmented Neutrophils % 70.2 %; White Blood Count 8.7 K/mcL (4.3-11.1)
[2021-10-03 08:50] LABS: Calcium 8.6 mg/dL (8.6-10.3); Potassium 4.2 mEq/L (3.5-5.1)
[2021-10-04] MEDS: Aspirin Enteric Coated 81 MG Tablet PO SCH (09:21)
[2021-10-04] MEDS: Gabapentin 100 MG CAPSULE PO SCH ×3 (09:21→19:58)
[2021-10-04] MEDS: rOPINIRole 1 MG TABLET PO SCH ×4 (09:21→19:58)
[2021-10-04] MEDS: Cholecalciferol (D-3) 1,000 UNIT (25MCG) TABLET PO SCH (09:21)
[2021-10-04] MEDS: allopurinoL 100 MG TABLET PO SCH (09:21)
[2021-10-04] MEDS: Famotidine 20 MG TABLET PO SCH (09:21)
[2021-10-04] MEDS: Apixaban 5 MG TABLET PO SCH ×2 (09:22→19:58)
[2021-10-04] MEDS: Multivit/Ca/Min/Fe/FA 1 TAB TABLET PO SCH (09:22)
[2021-10-05] MEDS: Famotidine 20 MG TABLET PO SCH (08:23)
[2021-10-05] MEDS: Multivit/Ca/Min/Fe/FA 1 TAB TABLET PO SCH (08:23)
[2021-10-05] MEDS: Cholecalciferol (D-3) 1,000 UNIT (25MCG) TABLET PO SCH (08:23)
[2021-10-05] MEDS: rOPINIRole 1 MG TABLET PO SCH ×4 (08:23→19:54)
[2021-10-05] MEDS: Apixaban 5 MG TABLET PO SCH ×2 (08:23→19:54)
[2021-10-05] MEDS: allopurinoL 100 MG TABLET PO SCH (08:23)
[2021-10-05] MEDS: Gabapentin 100 MG CAPSULE PO SCH ×3 (08:23→19:54)
[2021-10-05] MEDS: Aspirin Enteric Coated 81 MG Tablet PO SCH (08:23)
[2021-10-06] MEDS: rOPINIRole 1 MG TABLET PO SCH ×4 (07:55→20:06)
[2021-10-06] MEDS: allopurinoL 100 MG TABLET PO SCH (07:55)
[2021-10-06] MEDS: Apixaban 5 MG TABLET PO SCH ×2 (07:55→20:06)
[2021-10-06] MEDS: Cholecalciferol (D-3) 1,000 UNIT (25MCG) TABLET PO SCH (07:56)
[2021-10-06] MEDS: Famotidine 20 MG TABLET PO SCH (07:56)
[2021-10-06] MEDS: Gabapentin 100 MG CAPSULE PO SCH ×3 (07:56→20:06)
[2021-10-06] MEDS: Aspirin Enteric Coated 81 MG Tablet PO SCH (07:56)
[2021-10-06] MEDS: Multivit/Ca/Min/Fe/FA 1 TAB TABLET PO SCH (07:56)
[2021-10-07] MEDS: Apixaban 5 MG TABLET PO SCH ×2 (09:43→22:37)
[2021-10-07] MEDS: Gabapentin 100 MG CAPSULE PO SCH ×3 (09:43→22:37)
[2021-10-07] MEDS: Multivit/Ca/Min/Fe/FA 1 TAB TABLET PO SCH (09:43)
[2021-10-07] MEDS: rOPINIRole 1 MG TABLET PO SCH ×4 (09:43→22:37)
[2021-10-07] MEDS: Aspirin Enteric Coated 81 MG Tablet PO SCH (09:43)
[2021-10-07] MEDS: allopurinoL 100 MG TABLET PO SCH (09:43)
[2021-10-07] MEDS: Cholecalciferol (D-3) 1,000 UNIT (25MCG) TABLET PO SCH (09:43)
[2021-10-07] MEDS: Famotidine 20 MG TABLET PO SCH (09:43)
[2021-10-08] MEDS: Multivit/Ca/Min/Fe/FA 1 TAB TABLET PO SCH (08:53)
[2021-10-08] MEDS: Gabapentin 100 MG CAPSULE PO SCH ×3 (08:53→21:49)
[2021-10-08] MEDS: allopurinoL 100 MG TABLET PO SCH (08:54)
[2021-10-08] MEDS: Aspirin Enteric Coated 81 MG Tablet PO SCH (08:54)
[2021-10-08] MEDS: Cholecalciferol (D-3) 1,000 UNIT (25MCG) TABLET PO SCH (08:54)
[2021-10-08] MEDS: rOPINIRole 1 MG TABLET PO SCH ×4 (08:54→21:49)
[2021-10-08] MEDS: Apixaban 5 MG TABLET PO SCH ×2 (08:54→21:49)
[2021-10-08] MEDS: Famotidine 20 MG TABLET PO SCH (08:54)
[2021-10-08 18:39] VITALS: RESP 17
[2021-10-08] MEDS: tiZANidine 4 MG TABLET PO PRN (21:49)
[2021-10-09 06:26] VITALS: PULSE 71; TEMP 97.3; O2SAT 95
[2021-10-09 08:38] VITALS: BP 106/67
[2021-10-09] MEDS: Apixaban 5 MG TABLET PO SCH (08:43)
[2021-10-09] MEDS: Cholecalciferol (D-3) 1,000 UNIT (25MCG) TABLET PO SCH (08:43)
[2021-10-09] MEDS: Aspirin Enteric Coated 81 MG Tablet PO SCH (08:43)
[2021-10-09] MEDS: rOPINIRole 1 MG TABLET PO SCH ×2 (08:43→13:49)
[2021-10-09] MEDS: Famotidine 20 MG TABLET PO SCH (08:44)
[2021-10-09] MEDS: Gabapentin 100 MG CAPSULE PO SCH ×2 (08:44→14:57)
[2021-10-09] MEDS: allopurinoL 100 MG TABLET PO SCH (08:44)
[2021-10-09] MEDS: Multivit/Ca/Min/Fe/FA 1 TAB TABLET PO SCH (08:44)
== END 2021-10-09 15:35 | disposition home health service (06) | DRG 299 ==
LOC: INPPIK 09-24 01:58
PROVIDERS: ADMIT Family Medicine; ATTEND Family Medicine